=== PATIENT | female | born 1985 | race African-American/Black ===

== ENCOUNTER 2017-05-23 06:39 | Inpatient (IN) | payer OTHER ==
[~2017-05-23] VITALS: Ht 157.5 cm; Wt 67.0 kg
[2017-05-23] VITALS (9 sets, daily range): BP systolic 132–175; BP diastolic 83–105; PULSE 80–99; RESP 16–20; TEMP 98.2–98.9; O2SAT 97–99
[2017-05-23] MEDS ORDERED: ONDANSETRON HCL 4 MG/2 ML VIAL IV PUSH ONE (07:00)
[2017-05-23] MEDS ORDERED: MORPHINE SULFATE 8 MG/ML INJ IV PUSH ONE ×2 (07:00→09:15)
[2017-05-23] MEDS ORDERED: ceFAZolin 2 GM PREMIX 50 ML IV ONE (07:00)
[2017-05-23] MEDS ORDERED: SODIUM CHLOR 0.9% 1000 ML INJ 1,000 ML IV ONE (07:00)
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
[2017-05-23 07:49] LABS: AUTOMATED NEUTROPHIL # 2.8 TH/MM3 (1.8-7.7); BASOPHIL % 0.7 % (0.0-2.0); EOSINOPHIL % 0.7 % (0.0-4.0); HEMATOCRIT 23.3 % (35.0-46.0); HEMO FLAGS DIFF FINAL; LYMPH % 29.1 % (9.0-44.0); LYMPHOCYTE # 1.4 TH/MM3 (1.0-4.8); MEAN CELL VOLUME 70.5 FL (80.0-100.0); MEAN CORPUSCULAR HEMOGLOBIN 21.2 PG (27.0-34.0); MEAN CORPUSCULAR HGB CONC 30.1 % (32.0-36.0); MONO % 12.6 % (0.0-8.0); NEUT % 56.9 % (16.0-70.0); PLATELET COUNT 172 TH/MM3 (150-450); RED CELL DISTRIBUTION WIDTH 19.3 % (11.6-17.2); WHITE BLOOD COUNT 4.9 TH/MM3 (4.0-11.0)
[2017-05-23 07:59] LABS: APTT (PATIENT) 19.7 SEC (24.3-30.1); PROTHROMBIN TIME - PATIENT 10.7 SEC (9.8-11.6)
[2017-05-23 08:00] LABS: BICARBONATE 23.5 MEQ/L (21.0-32.0); POTASSIUM 3.9 MEQ/L (3.5-5.1)
[2017-05-23 09:19] LABS: BACTERIA, URINE RARE /hpf; BLOOD, URINE LARGE (NEG); COMMENT (UR) CULT NOT INDICATED; CULTURE IF INDICATED CULT NOT INDICATED; GLUCOSE,URINE NEG (NEG); HYALINE CAST, URINE 3 /lpf (RARE); KETONE, URINE NEG (NEG); MUCUS URINE FEW /lpf (OCC); NITRITE,URINE NEG (NEG); PH, URINE 5.5 (5.0-8.5); SQUAMOUS EPITHELIAL CELL URINE 1 /hpf (0-5); URINE COLOR LIGHT-YELLOW (YELLW/STRAW)
[2017-05-23] MEDS ORDERED: SODIUM CHLOR 0.9% 250 ML INJ 250 ML IV ONE (09:30)
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
[2017-05-23] MEDS ORDERED: IOHEXOL 350 MG/ML 10 ML VIAL (for RAD DIAG) IV ONE (10:15)
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
[2017-05-23] MEDS ORDERED: MORPHINE SULFATE 4 MG/ML INJ IV PUSH ONE (11:45)
[2017-05-23] MEDS ORDERED: NALOXONE HCL 0.4 MG/ML AMP IV PRN (12:15)
[2017-05-23] MEDS ORDERED: SENNOSIDES 8.6 MG TAB PO PRN (12:15)
[2017-05-23] MEDS ORDERED: MORPHINE SULFATE 4 MG/ML INJ IV PRN (12:15)
[2017-05-23] MEDS ORDERED: ONDANSETRON HCL 4 MG/2 ML VIAL IVP PRN (12:15)
[2017-05-23] MEDS ORDERED: LACTULOSE SYRUP 20 GM/30 ML CUP PO PRN (12:15)
[2017-05-23] MEDS ORDERED: BISACODYL 10 MG SUPP RECTAL PRN (12:15)
[2017-05-23] MEDS ORDERED: ACETAMINOPHEN 325 MG TAB PO PRN (12:15)
[2017-05-23] MEDS: SODIUM CHLOR 0.9% 1000 ML INJ 1,000 ML IV SCH ×2 (13:25→21:54)
[2017-05-23] MEDS: MORPHINE SULFATE 4 MG/ML INJ IV PRN ×4 (13:33→21:53)
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
[2017-05-23 16:29] LABS: HEMATOCRIT 25.9 % (35.0-46.0); REVIEW FLAG FINAL
[2017-05-23] MEDS: DOCUSATE SODIUM 50 MG/SENNA 8.6 MG TAB PO SCH (21:53)
[2017-05-24] VITALS (7 sets, daily range): BP systolic 142–151; BP diastolic 70–89; PULSE 91–112; RESP 18–20; TEMP 96.7–101.7; O2SAT 97–100
[2017-05-24] MEDS: MORPHINE SULFATE 4 MG/ML INJ IV PRN ×5 (01:54→19:14)
[2017-05-24] MEDS ORDERED: ACETAMINOPHEN 1000 MG/100 ML VIAL IV ONE (07:12)
[2017-05-24] MEDS ORDERED: DEXAMETHASONE SOD PHOS 4 MG/ML VIAL ONE (07:12)
[2017-05-24] MEDS ORDERED: SCOPOLAMINE 1.5 MG PATCH ONE (07:13)
[2017-05-24] MEDS ORDERED: FAMOTIDINE 20 MG/2 ML VIAL ONE (07:13)
[2017-05-24] MEDS ORDERED: SUGAMMADEX SODIUM 200 MG/2 ML VIAL IV PUSH ONE ×2 (07:14)
[2017-05-24] MEDS ORDERED: GENTAMICIN SULFATE 80 MG/2 ML VIAL ONE (07:18)
[2017-05-24] MEDS ORDERED: ceFAZolin INJ 1,000 MG VIAL ONE (07:49)
[2017-05-24] MEDS ORDERED: VANCOMYCIN HCL 1000 MG VIAL ONE (07:49)
[2017-05-24] MEDS: SODIUM CHLOR 0.9% 1000 ML INJ 1,000 ML IV SCH ×2 (08:08→16:15)
--- NOTE | 2017-05-24 09:09 | PD.OP ---
cc: Robert Delgado MD Operative Report Date of Surgery: May 24, 2017 Preoperative Diagnosis: Comminuted left tibia plateau fracture Postoperative Diagnosis: Comminuted left tibial plateau fracture, left lateral meniscus tear Procedure: Open reduction internal fixation left tibial plateau fracture, open repair of lateral meniscus tear Anesthesia: Gen. Surgeon: Robert Delgado Filbert Grower(s): LUCITA Levine PA-C The surgical procedure was assisted by my physician assistant tennis coach. My P.A. presence was necessary throughout this case for the manipulation and positioning of the surgical extremity. My P.A. was assisting me throughout the duration of this procedure. The skill set of a physician assistant tennis coach was medically necessary to complete this procedure. During the surgical case the surgical dental assistant was working at the back table and the physician assistant tennis coach was directly assisting me. Operation and Findings: This patient was seen and evaluated preoperatively. Patient sustained an injury resulting a displaced left tibial plateau fracture. Informed consent was obtained preoperatively after detailed discussion of the risks and benefits of surgery. Risk of surgery including bleeding, infection, nonunion, painful hardware, stiffness, loss of motion, arthritis, need for knee replacement, as well as medical complications including blood clots, stroke, heart attack, and were discussed. I also discussed the possibility of using allograft bone graft . Preoperatively the operative site was marked. Patient was brought to the operating room and placed on the operating room table. Intravenous sedation and general endotracheal anesthesia were administered. IV antibiotics were given and a time out procedure was preformed. The operative leg was prepped with alcohol followed by Hibiclens and draped in the usual sterile fashion. Procedure began with a 4-inch curvilinear incision over the anterolateral knee. Subcutaneous tissue was treated with Bovie. Iliotibial band was split in line with fibers. A sub-meniscal arthrotomy was created and the lateral articular surface was visualized. At this point she was noted to have a displaced lateral meniscus tear. Attention was now turned towards meniscal repair. The meniscus was reduced. Using #1 Vicryl the meniscus was repaired. 4 horizontal sutures were placed for the repair. The meniscus was now stable. Attention was now returned back to the tibial plateau. There was significant comminution and depression of the articular surface. A window was made in the metaphyseal region and bone tamps used to elevate the articular surface. Articular surface reduced into excellent alignment. K-wires were used for provisional fixation. At this point cancellous bone graft was packed under the articular surface using a bone tamp. The cortical fragments were now reduced. Fluoroscopy revealed excellent alignment of fracture. A Synthes proximal tibial plate was selected. The plate was provisionally held with K- wires. 3.5 cortical screws were used compress plate to bone distally, and a periarticular clamp was used to compress the medial and lateral tibial plateau fracture fragments together. Multiple locking screws were now placed proximally. Additional screws were placed in the shaft. K-wires were removed. Final fluoroscopy showed excellent alignment of fracture with well- placed hardware. The incision was thoroughly irrigated. Arthrotomy and iliotibial band closed with #1 Vicryl,. Subcutaneous tissues closed with 3-0 Vicryl and skin was closed with zach. Sterile dressings were applied. The patient was transferred to recovery in stable condition. Robert Delgado MD May 24, 2017 09:09
[2017-05-24] MEDS ORDERED: SODIUM CHLORIDE 0.9% FLUSH 5 ML FLUSH IVF PRN (09:15)
[2017-05-24] MEDS ORDERED: diphenhydrAMINE HCL 25 MG CAP PO PRN (09:15)
[2017-05-24] MEDS ORDERED: Post-op Orders (for Pharmacy) MISC XX ONE (09:15)
[2017-05-24] MEDS ORDERED: MISCELLANEOUS NURSING INFORMATION XX PRN (09:15)
[2017-05-24] MEDS ORDERED: *MEPERIDINE 25 MG INJ VIAL PERIprocedural Use ONLY ONE (09:30)
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
[2017-05-24] MEDS ORDERED: MIDAZOLAM HCL 2 MG/2 ML VIAL ONE (09:34)
[2017-05-24] MEDS ORDERED: DO NOT ADM ANY ANTICOAGULANT DRUGS PRN (09:35)
[2017-05-24] MEDS ORDERED: HYDR-3583 PO (09:40)
[2017-05-24] MEDS ORDERED: VITA2000 PO (09:40)
[2017-05-24] MEDS ORDERED: WHEEMIS3 (09:40)
[2017-05-24] MEDS ORDERED: WALKER/ADULT/FO1 MIS (09:40)
[2017-05-24] MEDS ORDERED: XARE10TA PO (09:40)
[2017-05-24] MEDS ORDERED: CALCTAB19 PO (09:40)
--- NOTE | 2017-05-24 09:42 | HHI.FF ---
Face to Face Verification Diagnosis: (1) Tibial plateau fracture, left Physical Therapy Gait training, Safety evaluation Knee: Knee fracture, Protocol: Left, Non weight bearing Canvas Knee Splint: Remove only with PT Left LE Weight Bearing: Non WB Left LE Range of Motion: Passive ROM Additional Instructions no active leg lifts or quad sets Nursing Dressing Changes: Daily dressing change, Kamran wrap, 4x4s, Xeroform I have seen patient Maggie Crawford on 05/24/17. My clinical findings support the need for the requested home health care services because: Limited ability to care for self I certify that my clinical findings support that this patient is homebound because: Post-op weakness Wilfred Marina Jr. May 24, 2017 09:42
--- NOTE | 2017-05-24 09:54 | EKG ---
Date Performed: 05/23/2017 Time Performed: 14:22:32 PTAGE: 31 years EKG: Sinus rhythm WITH FIRST DEGREE AV BLOCK ABNORMAL ECG NO PREVIOUS TRACING DOCTOR: Narendra Magana Interpretating Date/Time 05/24/2017 09:54:07
[2017-05-24] MEDS ORDERED: ERGOCALCIFEROL (VIT D2) 50,000 UNIT CAP PO SCH (10:00)
[2017-05-24] MEDS: LACTATED RINGER'S 1000 ML INJ 1,000 ML IV SCH (10:00)
[2017-05-24] MEDS: CALCIUM/VITAMIN D 250 MG/125 U TAB PO SCH ×2 (11:26→16:15)
[2017-05-24] MEDS: DOCUSATE SODIUM 50 MG/SENNA 8.6 MG TAB PO SCH ×2 (11:26→21:23)
[2017-05-24] MEDS ORDERED: LACTATED RINGER'S 1000 ML INJ 1,000 ML IV ONE (12:00)
[2017-05-24] MEDS ORDERED: KETOROLAC TROMETHAMINE 30 MG/ML (IVP) VIAL IV PUSH ONE (12:00)
[2017-05-24] MEDS ORDERED: PROPOFOL 200 MG/20 ML AMP IV ONE (12:00)
[2017-05-24] MEDS ORDERED: ONDANSETRON HCL 4 MG/2 ML VIAL IV PUSH ONE (12:00)
--- NOTE | 2017-05-24 14:46 | RADRPT ---
EXAM DATE/TIME: 05/24/2017 08:52 [facility] COMPARISON: No previous studies available for comparison. INDICATIONS : Tibial fracture. MEDICAL HISTORY : None. SURGICAL HISTORY : None. ENCOUNTER: Initial ACUITY: 1 day PAIN SCORE: Non-responsive. LOCATION: Left Knee. FINDINGS/ CONCLUSION: Three view left knee demonstrate the tibial fracture has been fixated with lateral fixation plate. T he bones appear to be in excellent alignment. There are no complications. Narendra Machado MD on May 24, 2017 at 14:37 Board Certified Radiologist. This report was verified electronically.
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
[2017-05-24] MEDS: ceFAZolin 2 GM PREMIX 50 ML IV SCH (16:14)
[2017-05-24 17:41] LABS: BASOPHIL % 0.3 % (0.0-2.0); HEMATOCRIT 26.6 % (35.0-46.0); HEMO FLAGS DIFF FINAL; LYMPH % 6.9 % (9.0-44.0); LYMPHOCYTE # 0.5 TH/MM3 (1.0-4.8); MEAN CELL VOLUME 72.4 FL (80.0-100.0); MEAN CORPUSCULAR HEMOGLOBIN 22.2 PG (27.0-34.0); MEAN CORPUSCULAR HGB CONC 30.6 % (32.0-36.0); MONO % 4.5 % (0.0-8.0); NEUT % 88.3 % (16.0-70.0); PLATELET COUNT 184 TH/MM3 (150-450); RED BLOOD COUNT 3.68 MIL/MM3 (4.00-5.30); RED CELL DISTRIBUTION WIDTH 19.8 % (11.6-17.2)
[2017-05-24 17:57] LABS: ANION GAP 7 MEQ/L (5-15); AST (GOT) 30 U/L (15-37); BICARBONATE 28.7 MEQ/L (21.0-32.0); BLOOD UREA NITROGEN 5 MG/DL (7-18); CHLORIDE 105 MEQ/L (98-107); GLOMERULAR FILTRATION RATE 81 ML/MIN (>89); POTASSIUM 3.7 MEQ/L (3.5-5.1); SODIUM (NA) 141 MEQ/L (136-145)
[2017-05-24 17:58] LABS: ALT (GPT) 14 U/L (10-53)
[2017-05-24 18:00] LABS: ALKALINE PHOSPHATASE 62 U/L (45-117); TOTAL BILIRUBIN ADULT 0.2 MG/DL (0.2-1.0)
[2017-05-24] MEDS: NICOTINE 21 MG/24 HR PATCH T-DERMAL SCH (18:12)
[2017-05-24] MEDS: SODIUM CHLORIDE 0.9% FLUSH 5 ML FLUSH IVF SCH (21:00)
[2017-05-24] MEDS: VANCOMYCIN INJ 1,000 MG in SODIUM CHLOR 0.9% 250 ML INJ 250 ML IV SCH (21:24)
[2017-05-24] MEDS: REMOVE OLD NICODERM (NICOTINE) PATCH T-DERMAL SCH (21:31)
[2017-05-24] MEDS: MORPHINE SULFATE 4 MG/ML INJ IV PUSH PRN (22:51)
[2017-05-25] VITALS (12 sets, daily range): BP systolic 118–151; BP diastolic 65–87; PULSE 71–110; RESP 18–20; TEMP 97.4–99.6; O2SAT 98–100
[2017-05-25] MEDS: ceFAZolin 2 GM PREMIX 50 ML IV SCH ×4 (00:24→22:53)
[2017-05-25] MEDS: ACETAMINOPHEN/HYDROcodone 325 MG/10 MG TAB PO PRN ×6 (00:57→22:53)
[2017-05-25] MEDS: MORPHINE SULFATE 4 MG/ML INJ IV PRN (02:44)
--- NOTE | 2017-05-25 06:41 | PD.ORT.PN ---
Subjective Subjective Remarks Patient is status post ORIF left tibial plateau fracture with open meniscus repair. Pain controlled. Patient appears comfortable. Objective Vitals Vital Signs Date Time Temp Pulse Resp B/P Pulse Ox O2 Delivery O2 Flow Rate FiO2 05/25/17 04:00 98.5 98 20 118/65 99 05/25/17 00:00 99.3 110 20 151/84 98 05/24/17 20:32 98 21 05/24/17 20:00 98.1 112 20 142/70 100 05/24/17 16:00 97.4 96 19 148/82 98 05/24/17 12:00 96.7 92 18 143/80 97 05/24/17 10:20 85 16 95 Room Air 05/24/17 10:20 16 05/24/17 10:15 97.8 87 16 135/80 94 Room Air 05/24/17 10:00 88 16 137/81 97 Nasal Cannula 2 05/24/17 09:45 92 16 137/79 100 Nasal Cannula 3 05/24/17 09:35 102 17 146/92 98 Nasal Cannula 3 05/24/17 09:30 98.4 115 24 134/100 92 Nasal Cannula 3 I/O 05/24/17 05/24/17 05/24/17 05/25/17 05/25/17 05/25/17 06:59 14:59 22:59 06:59 14:59 22:59 Intake Total 1280 ml 120 ml Output Total 1050 ml 30 ml Balance -1050 ml 1250 ml 120 ml Intake Oral 480 ml 120 ml IV Total 100 ml Other 700 ml Output Urine Total 1050 ml Estimated Blood Loss 30 ml # Voids 3 2 # Bowel Movements 1 0 Result Diagram: 05/24/17 1709 05/24/17 1709 Objective Remarks Patient is awake and alert. Examination of left leg reveals clean dry dressings in place. Calf compartments are soft. Mild swelling around the knee. Minimal pain with passive motion of the ankle and toes. Sensation intact left foot. Dorsalis pedis pulse is palpable. Assessment & Plan Assessment and Plan Postop day #1 status post ORIF left tibial plateau fracture--nonweightbearing, no quad sets Lovenox Physical therapy Plan discharge home Monday or Monday with walker and wheelchair Robert Parrish MD May 25, 2017 06:41
[2017-05-25 07:30] LABS: REVIEW FLAG FINAL
[2017-05-25] MEDS ORDERED: SODIUM CHLOR 0.9% 250 ML INJ 250 ML IV ONE (07:45)
[2017-05-25] MEDS: CALCIUM/VITAMIN D 250 MG/125 U TAB PO SCH ×3 (08:35→16:54)
[2017-05-25] MEDS: DOCUSATE SODIUM 50 MG/SENNA 8.6 MG TAB PO SCH ×2 (08:35→20:01)
[2017-05-25] MEDS: CHOLECALCIFEROL (VIT D3) 1000 UNIT TAB PO SCH (08:35)
[2017-05-25] MEDS: VANCOMYCIN INJ 1,000 MG in SODIUM CHLOR 0.9% 250 ML INJ 250 ML IV SCH ×2 (08:35→20:01)
[2017-05-25] MEDS: NICOTINE 21 MG/24 HR PATCH T-DERMAL SCH (08:36)
[2017-05-25] MEDS: REMOVE OLD NICODERM (NICOTINE) PATCH T-DERMAL SCH (08:37)
[2017-05-25] MEDS: MORPHINE SULFATE 4 MG/ML INJ IV PUSH PRN ×2 (08:37→20:29)
[2017-05-25] MEDS: SODIUM CHLORIDE 0.9% FLUSH 5 ML FLUSH IVF SCH ×2 (10:00→20:02)
[2017-05-25] MEDS: LACTATED RINGER'S 1000 ML INJ 1,000 ML IV SCH ×2 (10:01→23:30)
[2017-05-25] MEDS: ENOXAPARIN SODIUM 30 MG/0.3 ML SYRINGE SQ SCH (10:23)
[2017-05-25] MEDS ORDERED: PADIMATE (CHAPSTICK) 4.5 GM TUBE TOPICAL PRN (10:45)
[2017-05-25] MEDS ORDERED: HYDROCORTISONE 0.5% CREAM 30 GM TOPICAL PRN (11:00)
[2017-05-25] MEDS ORDERED: FLUCONAZOLE 100 MG TAB PO ONE (11:00)
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
[2017-05-25] MEDS: SODIUM CHLOR 0.9% 1000 ML INJ 1,000 ML IV SCH (14:51)
[2017-05-25 18:45] LABS: AUTOMATED NEUTROPHIL # 3.7 TH/MM3 (1.8-7.7); BASOPHIL % 0.5 % (0.0-2.0); EOSINOPHIL % 0.6 % (0.0-4.0); HEMATOCRIT 25.5 % (35.0-46.0); HEMO FLAGS DIFF FINAL; LYMPH % 35.3 % (9.0-44.0); LYMPHOCYTE # 2.4 TH/MM3 (1.0-4.8); MEAN CORPUSCULAR HEMOGLOBIN 22.9 PG (27.0-34.0); MEAN CORPUSCULAR HGB CONC 31.4 % (32.0-36.0); MONO % 9.7 % (0.0-8.0); NEUT % 53.9 % (16.0-70.0); PLATELET COUNT 172 TH/MM3 (150-450); RED CELL DISTRIBUTION WIDTH 20.1 % (11.6-17.2); WHITE BLOOD COUNT 6.8 TH/MM3 (4.0-11.0)
[2017-05-25 18:57] LABS: BICARBONATE 28.6 MEQ/L (21.0-32.0); POTASSIUM 3.3 MEQ/L (3.5-5.1)
[2017-05-25] MEDS: MAGNESIUM HYDROXIDE SUSP 30 ML CUP PO PRN (20:01)
[2017-05-26 00:20] VITALS: BP 138/50; PULSE 88; RESP 20; TEMP 99; O2SAT 100
[2017-05-26] MEDS: MORPHINE SULFATE 4 MG/ML INJ IV PUSH PRN ×3 (00:20→21:29)
[2017-05-26] MEDS: SODIUM CHLOR 0.9% 1000 ML INJ 1,000 ML IV SCH (00:27)
[2017-05-26] MEDS: ACETAMINOPHEN/HYDROcodone 325 MG/10 MG TAB PO PRN ×6 (03:25→23:30)
[2017-05-26 05:50] VITALS: BP 140/80; PULSE 80; RESP 19; TEMP 98; O2SAT 99
--- NOTE | 2017-05-26 06:53 | PD.ORT.PN ---
Subjective Subjective Remarks POD 2 s/p ORIF left tibial plateau doing well. pain controlled. out of bed with walker and going to bathroom. patient reports that no family or help at home. Objective Vitals Vital Signs Date Time Temp Pulse Resp B/P Pulse Ox O2 Delivery O2 Flow Rate FiO2 05/26/17 00:20 99.0 88 20 138/50 100 05/25/17 21:30 99.6 97 18 143/87 100 05/25/17 16:52 97.8 84 18 148/68 99 05/25/17 12:00 97.4 71 18 127/78 99 05/25/17 11:28 98.2 90 18 127/75 100 05/25/17 11:27 98.2 90 18 127/75 100 05/25/17 11:00 98.2 89 18 129/74 100 05/25/17 10:28 97.9 92 18 141/67 100 05/25/17 10:16 98.0 97 18 147/67 100 05/25/17 09:37 98.5 100 18 142/85 100 05/25/17 08:00 98.2 97 18 137/75 99 I/O 05/25/17 05/25/17 05/25/17 05/26/17 05/26/17 05/26/17 07:00 15:00 23:00 07:00 15:00 23:00 Intake Total 1570 ml 730 ml 750 ml Balance 1570 ml 730 ml 750 ml Intake Oral 120 ml 480 ml 750 ml IV Total 1450 ml Packed Cells 250 ml # Voids 2 0 # Bowel Movements 0 0 Result Diagram: 05/25/17 1723 05/25/17 1723 Objective Remarks Patient is awake and alert. Examination of left leg reveals clean dry dressings in place. Calf compartments are soft. Mild swelling around the knee. Minimal pain with passive motion of the ankle and toes. Sensation intact left foot. Dorsalis pedis pulse is palpable. Assessment & Plan Assessment and Plan 1) Postop day #2 status post ORIF left tibial plateau fracture nonweightbearing, no quad sets, no AROM Lovenox for DVT prophylaxis Physical therapy for PROM of knee. Patient has no help at home and would be alone if she were discharged home. Recommend SNF placement if possible. would be safest outcome for her CM for rehab placement ortho clear for discharge when arrangement made f/u with [facility] or [facility] in 2 weeks 1481 on chart Puneet Issa May 26, 2017 06:53
[2017-05-26 07:44] LABS: AUTOMATED NEUTROPHIL # 3.7 TH/MM3 (1.8-7.7); BASOPHIL # 0.1 TH/MM3 (0-0.2); BASOPHIL % 1.1 % (0.0-2.0); EOSINOPHIL # 0.1 TH/MM3 (0-0.4); EOSINOPHIL % 1.1 % (0.0-4.0); HEMO FLAGS DIFF FINAL; LYMPH % 30.8 % (9.0-44.0); LYMPHOCYTE # 2.1 TH/MM3 (1.0-4.8); MEAN CORPUSCULAR HEMOGLOBIN 22.7 PG (27.0-34.0); MEAN CORPUSCULAR HGB CONC 30.7 % (32.0-36.0); MONO % 11.4 % (0.0-8.0); NEUT % 55.6 % (16.0-70.0); PLATELET COUNT 176 TH/MM3 (150-450); RED BLOOD COUNT 3.24 MIL/MM3 (4.00-5.30); RED CELL DISTRIBUTION WIDTH 19.7 % (11.6-17.2); WHITE BLOOD COUNT 6.7 TH/MM3 (4.0-11.0)
[2017-05-26] MEDS: MORPHINE SULFATE 4 MG/ML INJ IV PRN (08:25)
[2017-05-26] MEDS: ceFAZolin 2 GM PREMIX 50 ML IV SCH (08:27)
[2017-05-26] MEDS: ENOXAPARIN SODIUM 30 MG/0.3 ML SYRINGE SQ SCH (08:28)
[2017-05-26] MEDS: DOCUSATE SODIUM 50 MG/SENNA 8.6 MG TAB PO SCH ×2 (08:28→20:56)
[2017-05-26] MEDS: CALCIUM/VITAMIN D 250 MG/125 U TAB PO SCH ×3 (08:28→17:04)
[2017-05-26] MEDS: CHOLECALCIFEROL (VIT D3) 1000 UNIT TAB PO SCH (08:29)
[2017-05-26] MEDS: SODIUM CHLORIDE 0.9% FLUSH 5 ML FLUSH IVF SCH ×2 (08:29→21:00)
[2017-05-26] MEDS: NICOTINE 21 MG/24 HR PATCH T-DERMAL SCH (08:29)
[2017-05-26 08:51] VITALS: BP 140/92; PULSE 91; RESP 18; TEMP 97.5; O2SAT 98
[2017-05-26] MEDS ORDERED: POTASSIUM CHLORIDE 20 MEQ CONTROLLED RELEASE TAB PO ONE (09:00)
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
[2017-05-26 12:05] VITALS: BP 139/78; PULSE 98; RESP 18; TEMP 97.3; O2SAT 99
--- NOTE | 2017-05-26 14:38 | PQ ---
Physician Query Response Document PATIENT: IAM PARK : 1985 ADMIT DATE: 05/23/2017 11:58 AM DISCH DATE: RESPONDING PROVIDER #: [email or web address] QUERY TEXT: Anemia Type Anemia is documented in the Medical Record. Please specify the cause (includes suspected or probable cause) Such as: -- Due to acute blood loss -- Due to chronic blood loss -- Due to iron deficiency -- Due to postoperative blood loss -- Due to chronic disease -- Other, please specify The patient's Clinical Indicators include: Anemia: Patient reports history of chronic anemia. No apparent active blood loss on imaging. Transfus ion of 1 unit PRBCs completed in ER. Monitor H Query created by: Lashon Stover on 05/26/2017 1:44 PM RESPONSE TEXT: The patient's anemia is chronic secondary to chronic illness with acute worsening due to acute blood loss. Electronically signed by: Humza Pratt MD 05/26/2017 2:34 PM
[2017-05-26 16:37] VITALS: BP 149/86; PULSE 97; RESP 18; TEMP 100.4; O2SAT 100
[2017-05-26 17:35] LABS: HEMATOCRIT 26.3 % (35.0-46.0); REVIEW FLAG FINAL
[2017-05-26 20:30] VITALS: BP 153/80; PULSE 106; RESP 18; TEMP 99.8; O2SAT 98
[2017-05-26] MEDS: REMOVE OLD NICODERM (NICOTINE) PATCH T-DERMAL SCH (21:30)
[2017-05-27] VITALS (8 sets, daily range): BP systolic 135–175; BP diastolic 80–101; PULSE 87–104; RESP 18–20; TEMP 97.9–99.4; O2SAT 95–100
[2017-05-27] MEDS: ACETAMINOPHEN/HYDROcodone 325 MG/10 MG TAB PO PRN ×5 (02:08→20:21)
[2017-05-27] MEDS: MORPHINE SULFATE 4 MG/ML INJ IV PUSH PRN ×2 (05:15→08:09)
--- NOTE | 2017-05-27 07:15 | PD.ORT.PN ---
Subjective Subjective Remarks POD 3 s/p ORIF left tibial plateau doing well. pain controlled. out of bed with walker and going to bathroom. patient reports that no family or help at home. states that got urine on knee brace yesterday so has not been wearing it so that it could dry. Objective Vitals Vital Signs Date Time Temp Pulse Resp B/P Pulse Ox O2 Delivery O2 Flow Rate FiO2 05/27/17 03:36 95 05/27/17 00:45 98.8 100 19 147/86 97 05/26/17 20:30 99.8 106 18 153/80 98 05/26/17 16:37 100.4 97 18 149/86 100 05/26/17 12:22 18 05/26/17 12:05 97.3 98 18 139/78 99 05/26/17 08:51 97.5 91 18 140/92 98 05/26/17 08:30 18 I/O 05/26/17 05/26/17 05/26/17 05/27/17 05/27/17 05/27/17 07:00 15:00 23:00 07:00 15:00 23:00 Intake Total 2700 ml 1360 ml Output Total 801 ml Balance 2700 ml -801 ml 1360 ml Intake Oral 800 ml 1360 ml IV Total 1900 ml Output Urine Total 800 ml Stool Total 1 ml # Voids 4 1 # Bowel Movements 0 0 Result Diagram: 05/26/17 1654 05/25/17 1723 Objective Remarks Patient is awake and alert. Examination of left leg reveals clean dry dressings in place. Calf compartments are soft. Mild swelling around the knee. Minimal pain with passive motion of the ankle and toes. Sensation intact left foot. Dorsalis pedis pulse is palpable. dressing placed used navya wrap Assessment & Plan Assessment and Plan 1) Postop day #3 status post ORIF left tibial plateau fracture nonweightbearing, no quad sets, no AROM Lovenox for DVT prophylaxis Physical therapy for PROM of knee. Patient has no help at home and would be alone if she were discharged home. Recommend SNF placement if possible. would be safest outcome for her CM for rehab placement ortho clear for discharge when arrangement made f/u with [facility] or [facility] in 2 weeks 3008 on chart daily dressing changes with xeroform/4x4/STONEY wrap. DO NOT USE NAVYA WRAP. will order a new CKS today Puneet Issa May 27, 2017 07:15
[2017-05-27] MEDS: ENOXAPARIN SODIUM 30 MG/0.3 ML SYRINGE SQ SCH (07:59)
[2017-05-27] MEDS: DOCUSATE SODIUM 50 MG/SENNA 8.6 MG TAB PO SCH ×2 (08:00→21:00)
[2017-05-27] MEDS: CHOLECALCIFEROL (VIT D3) 1000 UNIT TAB PO SCH (08:00)
[2017-05-27] MEDS: CALCIUM/VITAMIN D 250 MG/125 U TAB PO SCH ×3 (08:00→16:39)
[2017-05-27] MEDS: REMOVE OLD NICODERM (NICOTINE) PATCH T-DERMAL SCH (08:01)
[2017-05-27] MEDS: NICOTINE 21 MG/24 HR PATCH T-DERMAL SCH (08:01)
[2017-05-27] MEDS: SODIUM CHLORIDE 0.9% FLUSH 5 ML FLUSH IVF SCH ×2 (08:02→21:00)
[2017-05-27 08:26] LABS: AUTOMATED NEUTROPHIL # 3.6 TH/MM3 (1.8-7.7); BASOPHIL # 0.1 TH/MM3 (0-0.2); BASOPHIL % 1.1 % (0.0-2.0); EOSINOPHIL # 0.1 TH/MM3 (0-0.4); EOSINOPHIL % 1.7 % (0.0-4.0); HEMATOCRIT 26.1 % (35.0-46.0); HEMO FLAGS DIFF FINAL; LYMPH % 24.2 % (9.0-44.0); LYMPHOCYTE # 1.4 TH/MM3 (1.0-4.8); MEAN CELL VOLUME 73.9 FL (80.0-100.0); MEAN CORPUSCULAR HEMOGLOBIN 22.3 PG (27.0-34.0); MEAN CORPUSCULAR HGB CONC 30.2 % (32.0-36.0); PLATELET COUNT 206 TH/MM3 (150-450); RED BLOOD COUNT 3.54 MIL/MM3 (4.00-5.30); RED CELL DISTRIBUTION WIDTH 20.2 % (11.6-17.2); WHITE BLOOD COUNT 5.9 TH/MM3 (4.0-11.0)
[2017-05-27 08:49] LABS: BICARBONATE 28.8 MEQ/L (21.0-32.0); POTASSIUM 3.8 MEQ/L (3.5-5.1)
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
[2017-05-27] MEDS ORDERED: MORPHINE SULFATE 4 MG/ML INJ IV PRN (12:00)
[2017-05-27] MEDS: MORPHINE SULFATE 4 MG/ML INJ IV PRN (12:08)
[2017-05-28] VITALS: BP 149/84; PULSE 89; RESP 20; TEMP 98.2; O2SAT 98
[2017-05-28] MEDS: ACETAMINOPHEN/HYDROcodone 325 MG/10 MG TAB PO PRN ×6 (01:15→20:58)
[2017-05-28] MEDS: MORPHINE SULFATE 4 MG/ML INJ IV PRN (02:54)
[2017-05-28] MEDS: MAGNESIUM HYDROXIDE SUSP 30 ML CUP PO PRN (02:54)
--- NOTE | 2017-05-28 07:11 | PD.ORT.PN ---
Subjective Subjective Remarks POD 4 s/p ORIF left tibial plateau doing well. pain controlled. out of bed with walker and going to bathroom. patient reports that no family or help at home. new knee brace placed yesterday Objective Vitals Vital Signs Date Time Temp Pulse Resp B/P Pulse Ox O2 Delivery O2 Flow Rate FiO2 05/28/17 00:00 98.2 89 20 149/84 98 05/27/17 20:00 98.9 94 20 175/94 100 05/27/17 16:56 99.4 104 18 147/91 97 05/27/17 13:17 98.1 97 18 147/92 99 05/27/17 10:48 97 21 05/27/17 08:58 98.2 87 18 161/101 100 I/O 05/27/17 05/27/17 05/27/17 05/28/17 05/28/17 05/28/17 07:00 15:00 23:00 07:00 15:00 23:00 Intake Total 1232 ml 960 ml 240 ml Balance 1232 ml 960 ml 240 ml Intake Oral 1232 ml 960 ml 240 ml # Voids 4 6 1 # Bowel Movements 0 Result Diagram: 05/27/17 0632 05/27/17 0632 Objective Remarks Patient is awake and alert. Examination of left leg reveals clean dry dressings in place. Calf compartments are soft. Mild swelling around the knee. Minimal pain with passive motion of the ankle and toes. Sensation intact left foot. Dorsalis pedis pulse is palpable. knee brace in place. does not fit properly and is not in proper place on knee Assessment & Plan Assessment and Plan 1) Postop day #4 status post ORIF left tibial plateau fracture nonweightbearing, no quad sets, no AROM Lovenox for DVT prophylaxis Physical therapy for PROM of knee. Patient has no help at home and would be alone if she were discharged home. Recommend SNF placement if possible. would be safest outcome for her CM for rehab placement ortho clear for discharge when arrangement made f/u with [facility] or [facility] in 2 weeks 3008 on chart daily dressing changes with xeroform/4x4/STONEY wrap. DO NOT USE TRAN WRAP. CKS adjusted to fit properly at bedside today Puneet Issa May 28, 2017 07:11
[2017-05-28 07:52] VITALS: BP 143/88; PULSE 83; RESP 16; TEMP 98.4; O2SAT 99
[2017-05-28] MEDS: DOCUSATE SODIUM 50 MG/SENNA 8.6 MG TAB PO SCH ×2 (07:55→21:00)
[2017-05-28] MEDS: NICOTINE 21 MG/24 HR PATCH T-DERMAL SCH (07:55)
[2017-05-28] MEDS: CHOLECALCIFEROL (VIT D3) 1000 UNIT TAB PO SCH (07:55)
[2017-05-28] MEDS: ENOXAPARIN SODIUM 30 MG/0.3 ML SYRINGE SQ SCH (07:55)
[2017-05-28] MEDS: CALCIUM/VITAMIN D 250 MG/125 U TAB PO SCH ×3 (07:55→17:38)
[2017-05-28] MEDS: REMOVE OLD NICODERM (NICOTINE) PATCH T-DERMAL SCH (07:55)
[2017-05-28] MEDS: SODIUM CHLORIDE 0.9% FLUSH 5 ML FLUSH IVF SCH ×2 (07:56→21:00)
[2017-05-28 12:00] VITALS: BP 146/92; PULSE 101; RESP 20; TEMP 98.3; O2SAT 100
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
[2017-05-28] MEDS ORDERED: MORPHINE SULFATE 4 MG/ML INJ IV PRN ×2 (15:45)
[2017-05-28 16:33] VITALS: BP 156/92; PULSE 88; RESP 20; TEMP 98.4; O2SAT 100
[2017-05-29] VITALS: BP 137/82; PULSE 99; RESP 18; TEMP 98.8; O2SAT 99
[2017-05-29] MEDS: ACETAMINOPHEN/HYDROcodone 325 MG/10 MG TAB PO PRN ×6 (00:34→21:16)
[2017-05-29 04:00] VITALS: BP 130/62; PULSE 85; RESP 18; TEMP 98.3; O2SAT 99
[2017-05-29 08:00] VITALS: BP 133/80; PULSE 88; RESP 19; TEMP 97.7; O2SAT 99
[2017-05-29] MEDS: CHOLECALCIFEROL (VIT D3) 1000 UNIT TAB PO SCH (09:00)
[2017-05-29] MEDS: CALCIUM/VITAMIN D 250 MG/125 U TAB PO SCH ×3 (09:00→17:44)
[2017-05-29] MEDS: DOCUSATE SODIUM 50 MG/SENNA 8.6 MG TAB PO SCH ×2 (09:00→21:16)
[2017-05-29] MEDS: NICOTINE 21 MG/24 HR PATCH T-DERMAL SCH (09:01)
[2017-05-29 12:00] VITALS: BP 139/94; PULSE 109; RESP 19; TEMP 98.2; O2SAT 100
[2017-05-29] MEDS: ENOXAPARIN SODIUM 30 MG/0.3 ML SYRINGE SQ SCH (12:44)
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
[2017-05-29 16:00] VITALS: BP 132/67; PULSE 97; RESP 19; TEMP 98; O2SAT 99
[2017-05-29 20:00] VITALS: BP 130/87; PULSE 92; RESP 18; TEMP 98.9; O2SAT 100
[2017-05-29] MEDS: SODIUM CHLORIDE 0.9% FLUSH 5 ML FLUSH IVF SCH (21:00)
[2017-05-29] MEDS: REMOVE OLD NICODERM (NICOTINE) PATCH T-DERMAL SCH (21:00)
[2017-05-29] MEDS: MAGNESIUM HYDROXIDE SUSP 30 ML CUP PO PRN (22:20)
[2017-05-30] VITALS: BP 145/69; PULSE 85; RESP 18; TEMP 98.8; O2SAT 98
[2017-05-30] MEDS: ACETAMINOPHEN/HYDROcodone 325 MG/10 MG TAB PO PRN ×5 (03:03→15:39)
[2017-05-30 04:00] VITALS: BP 118/70; PULSE 75; RESP 18; TEMP 98.2; O2SAT 99
[2017-05-30 08:00] VITALS: BP 119/64; PULSE 80; RESP 16; TEMP 98.1; O2SAT 100
[2017-05-30] MEDS: ENOXAPARIN SODIUM 30 MG/0.3 ML SYRINGE SQ SCH (11:35)
[2017-05-30] MEDS: CALCIUM/VITAMIN D 250 MG/125 U TAB PO SCH (11:35)
[2017-05-30] MEDS: DOCUSATE SODIUM 50 MG/SENNA 8.6 MG TAB PO SCH (11:35)
[2017-05-30] MEDS: CHOLECALCIFEROL (VIT D3) 1000 UNIT TAB PO SCH (11:35)
[2017-05-30] MEDS: NICOTINE 21 MG/24 HR PATCH T-DERMAL SCH (11:36)
[2017-05-30 12:00] VITALS: BP 133/78; PULSE 86; RESP 16; TEMP 97.9; O2SAT 99
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
== END 2017-05-30 17:47 | disposition home or self-care (01) | DRG 488 ==
LOC: NEPC 06:39 → NEDA 11:58 → N05A 17:16
PROVIDERS: ADMIT Internal Medicine; ATTEND Internal Medicine
PROC: 0SQD0ZZ Repair Left Knee Joint, Open Approach (ICD-10-PCS; 2017-05-24)
PROC: 0QSH04Z Reposition Left Tibia with Internal Fixation Device, Open Approach (ICD-10-PCS; principal; 2017-05-24 07:36)
DX: S82.142A Displaced bicondylar fracture of left tibia, initial encounter for closed fracture (principal); D62 Acute posthemorrhagic anemia; I31.3 Pericardial effusion (noninflammatory); M32.9 Systemic lupus erythematosus, unspecified; D63.8 Anemia in other chronic diseases classified elsewhere; S83.282A Other tear of lateral meniscus, current injury, left knee, initial encounter; E87.6 Hypokalemia; S01.511A Laceration without foreign body of lip, initial encounter; V03.10XA Pedestrian on foot injured in collision with car, pick-up truck or van in traffic accident, initial encounter; Y92.410 Unspecified street and highway as the place of occurrence of the external cause; M06.9 Rheumatoid arthritis, unspecified; F17.210 Nicotine dependence, cigarettes, uncomplicated
CPT/HCPCS: 36430; 70450; 71010; 71260; 72125; 72170; 73080; 73560; 73564; 73700; 74177; 76000; 76937; 80048; 80053; 81001; 82652; 84703; 85014; 85018; 85025; 85610; 85730; 86850; 86900; 86901; 86920; 93005; 94150; 96365; 96375; 96376; C1713; J0131; J0690; J1100; J1580; J1650; J1885; J2175; J2250; J2270; J2405; J3010; J3370; J7030; J7050; J7120; L1830; P9016; Q9967